=== PATIENT | male | born 1945 | race Caucasian/White ===

== ENCOUNTER 2020-01-13 01:02 | Emergency (ER) | payer MEDICARE, OTHER ==
[~2020-01-13] VITALS: Ht 175.3 cm; Wt 68.2 kg
[~2020-01-13 01:02] MED LIST: ALBU8HFA IH; ASPI-1111 PO; ATOR20TA86 PO; AZITH2005L PO; CLOP75TA3 PO; LISI-660 PO
[2020-01-13] MEDS ORDERED: ALBUTEROL SULFATE 5 MG/ML 20 ML NEB SOLN [BULK] NEB ONE ×2 (01:30)
[2020-01-13] MEDS ORDERED: IPRATROPIUM BROMIDE 0.5 MG/2.5 ML NEB SOLUTION NEB ONE ×2 (01:30→01:33)
[2020-01-13] MEDS ORDERED: MethylPREDNISolone SOD SUCC 125 MG/2 ML VIAL IVP ONE (01:30)
[2020-01-13] MEDS ORDERED: 0.9% SODIUM CHLORIDE 5 ML NEB SOLUTION NEB ONE ×3 (01:33→02:23)
[2020-01-13 02:55] LABS: BASOPHILS % (AUTO) 0.1 % (0.0-2.0); EOSINOPHILS % (AUTO) 0.1 % (1.0-6.0); HEMATOCRIT 34.6 % (41-53); HEMOGLOBIN 11.1 g/dL (13.5-17.5); LYMPHOCYTES # (AUTO) 3.5 K/uL (1.0-4.8); LYMPHOCYTES % (AUTO) 18.9 % (22.0-44.0); MEAN CORPUSCULAR HEMOGLOBIN 31.7 pg (26.0-34.0); MEAN CORPUSCULAR VOLUME 99 fL (80-100); MONOCYTES # (AUTO) 0.6 K/uL (0.1-1.0); MONOCYTES % (AUTO) 3.5 % (2.0-9.0); NEUTROPHILS # (AUTO) 14.3 K/uL (1.8-7.7); NEUTROPHILS % (AUTO) 77.4 % (40.0-70.0); PLATELET COUNT (AUTO) 213 K/uL (150-450); RED BLOOD CELL COUNT(AUTO) 3.49 MIL/uL (4.50-5.90); RED CELL DISTRIBUTION WIDTH 17.2 % (11.5-14.5)
[2020-01-13 03:23] LABS: ALANINE AMINOTRANSFERASE 59 U/L (12-78); ALBUMIN 2.5 g/dL (3.4-5.0); ALKALINE PHOSPHATASE 93 U/L (46-116); ANION GAP 7 mmol/L (8-16); ASPARTATE AMINOTRANSFERASE 85 U/L (15-37); BILIRUBIN,TOTAL 0.7 mg/dL (0.1-1.0); CALCIUM, TOTAL 8.2 mg/dL (8.8-10.5); CARBON DIOXIDE 28 mmol/L (22-29); CHLORIDE 103 mmol/L (98-107); CREATINE KINASE, TOTAL ONLY 67 U/L (39-308); CREATININE 1.03 mg/dL (0.60-1.30); GLOMERULAR FILTR. RATE CALC > 60 mL/min (>60); GLUCOSE,RANDOM 217 mg/dL (70-110); SODIUM SERUM 138 mmol/L (136-145); UREA NITROGEN, BLOOD 20 mg/dL (7-18)
[2020-01-13 03:28] LABS: B-TYPE NATRIURETIC PEPTIDE 1550 pg/mL (0-100)
[2020-01-13] MEDS ORDERED: POTASSIUM CHLORIDE 20 MEQ ER TABLET PO ONE (04:00)
[2020-01-13 04:09] VITALS: BP 131/51
== END 2020-01-13 04:50 | disposition home or self-care (01) ==
LOC: EMS 01:02
DX: J44.9 Chronic obstructive pulmonary disease, unspecified (principal); J18.9 Pneumonia, unspecified organism; I10 Essential (primary) hypertension; F17.210 Nicotine dependence, cigarettes, uncomplicated; Z79.82 Long term (current) use of aspirin; Z79.899 Other long term (current) drug therapy
CPT/HCPCS: 36415; 71045; 80053; 82550; 83880; 84484; 85025; 87040; 93005; 94644; 96374; 99291; J2930

== ENCOUNTER 2021-10-20 05:21 | Emergency (ER) | payer MEDICARE, OTHER ==
[~2021-10-20] VITALS: Ht 167.6 cm; Wt 64.1 kg
[~2021-10-20 05:21] MED LIST changes: +ALEN70TA65 PO; -ASPI-1111 PO; +ASPI-1444 PO; +ATOR10TA84 PO; -ATOR20TA86 PO; -AZITH2005L PO; -CLOP75TA3 PO; +HYDR25TA2 PO; -LISI-660 PO; +PROP10TA73 PO; +ZINC220C14 PO
[2021-10-20] MEDS ORDERED: PredniSONE 20 MG TABLET PO ONE (06:15)
[2021-10-20 07:01] LABS: COVID AG,FIA SOURCE NASOPHARYNGEAL
[2021-10-20 09:00] VITALS: BP 153/72
== END 2021-10-20 09:47 | disposition home or self-care (01) ==
LOC: EMS 05:22
DX: J44.9 Chronic obstructive pulmonary disease, unspecified (principal); E78.00 Pure hypercholesterolemia, unspecified; I10 Essential (primary) hypertension; F17.210 Nicotine dependence, cigarettes, uncomplicated; Z20.822 Contact with and (suspected) exposure to COVID-19; Z79.82 Long term (current) use of aspirin
CPT/HCPCS: 71045; 87426; 93005; 99285; J7512

== ENCOUNTER 2021-10-21 06:19 | Inpatient (IN) | payer MEDICARE, OTHER ==
[~2021-10-21] VITALS: Ht 172.7 cm; Wt 68.6 kg
[2021-10-21] MEDS ORDERED: ALBUTEROL SULFATE 5 MG/ML 20 ML NEB SOLN [BULK] NEB ONE (06:30)
[2021-10-21] MEDS ORDERED: IPRATROPIUM BROMIDE 0.5 MG/2.5 ML NEB SOLUTION NEB ONE (06:30)
[2021-10-21] MEDS ORDERED: MethylPREDNISolone SOD SUCC 125 MG/2 ML VIAL IVP ONE (06:30)
[2021-10-21 06:46] LABS: BASOPHILS % (AUTO) 0.2 % (0.0-2.0); EOSINOPHILS % (AUTO) 0.2 % (1.0-6.0); HEMATOCRIT 39.8 % (41-53); HEMOGLOBIN 13.4 g/dL (13.5-17.5); LYMPHOCYTES # (AUTO) 3.8 K/uL (1.0-4.8); LYMPHOCYTES % (AUTO) 25.2 % (22.0-44.0); MEAN CORPUSCULAR HEMOGLOBIN 33.5 pg (26.0-34.0); MEAN CORPUSCULAR HGB CONC 33.6 G/dL (31.0-37.0); MEAN CORPUSCULAR VOLUME 100 fL (80-100); MONOCYTES # (AUTO) 0.8 K/uL (0.1-1.0); MONOCYTES % (AUTO) 5.5 % (2.0-9.0); NEUTROPHILS # (AUTO) 10.4 K/uL (1.8-7.7); NEUTROPHILS % (AUTO) 68.9 % (40.0-70.0); PLATELET COUNT (AUTO) 268 K/uL (150-450); RED BLOOD CELL COUNT(AUTO) 3.99 MIL/uL (4.50-5.90); RED CELL DISTRIBUTION WIDTH 14.6 % (11.5-14.5)
[2021-10-21 06:54] LABS: ANION GAP 9 mmol/L (8-16); CALCIUM, TOTAL 9.1 mg/dL (8.8-10.5); CARBON DIOXIDE 26 mmol/L (22-29); CHLORIDE 103 mmol/L (98-107); CREATININE 1.05 mg/dL (0.60-1.30); GLUCOSE,RANDOM 188 mg/dL (70-110); POTASSIUM 4.7 mmol/L (3.5-5.1); SODIUM SERUM 138 mmol/L (136-145); UREA NITROGEN, BLOOD 20 mg/dL (7-18)
[2021-10-21 06:55] LABS: GLOMERULAR FILTR. RATE CALC > 60 mL/min (>60)
[2021-10-21 07:00] LABS: ALANINE AMINOTRANSFERASE 32 U/L (12-78); ALKALINE PHOSPHATASE 87 U/L (46-116); ASPARTATE AMINOTRANSFERASE 49 U/L (15-37); BILIRUBIN,TOTAL 0.8 mg/dL (0.1-1.0); TOTAL PROTEIN, SERUM 6.7 g/dL (6.4-8.2)
[2021-10-21] MEDS ORDERED: AZITHROMYCIN 500 MG/NS 250 ML IV ONE (07:00)
[2021-10-21] MEDS ORDERED: CefTRIAXone 1 GM/DEXTROSE 50 ML IV ONE (07:00)
[2021-10-21 07:03] LABS: COVID AG,FIA SOURCE NASAL SWAB
[2021-10-21] MEDS ORDERED: ONDANSETRON HCL 4 MG/2 ML VIAL IVP PRN (07:30)
[2021-10-21] MEDS ORDERED: ACETAMINOPHEN 325 MG TABLET PO PRN ×2 (07:30→10:30)
[2021-10-21] MEDS ORDERED: IPRATROPIUM BROMIDE 0.5 MG/2.5 ML NEB SOLUTION NEB PRN (10:30)
[2021-10-21] MEDS ORDERED: ALBUTEROL SULFATE 2.5 MG/0.5 ML NEB SOLUTION NEB PRN (10:30)
[2021-10-21] MEDS: AmLODIPine BESYLATE 5 MG TABLET PO SCH (10:50)
[2021-10-21] MEDS ORDERED: IPRATROPIUM BROMIDE 0.5 MG/2.5 ML NEB SOLUTION NEB SCH (11:00)
[2021-10-21] MEDS ORDERED: ALBUTEROL SULFATE 2.5 MG/0.5 ML NEB SOLUTION NEB SCH (11:00)
[2021-10-21] MEDS: MethylPREDNISolone SOD SUCC 125 MG/2 ML VIAL IVP SCH (15:08)
[2021-10-21] MEDS: HEPARIN SODIUM,PORCINE 5,000 UNITS/ML VIAL SQ SCH (15:08)
[2021-10-21 18:11] VITALS: BP 150/69
[2021-10-21 19:34] VITALS: BP 127/58
[2021-10-21] MEDS: DOCUSATE SODIUM 100 MG CAPSULE PO SCH (21:37)
[2021-10-21] MEDS: FAMOTIDINE 20 MG TABLET PO SCH (21:37)
[2021-10-22] MEDS ORDERED: INFLUENZA VIRUS VACCINE QVS 2021-22 (6MO+)/PF 60 MCG/0.5 ML SYRINGE IM. ONE (00:15)
[2021-10-22 00:21] VITALS: BP 146/65
[2021-10-22] MEDS: HEPARIN SODIUM,PORCINE 5,000 UNITS/ML VIAL SQ SCH ×3 (00:49→16:35)
[2021-10-22] MEDS: MethylPREDNISolone SOD SUCC 125 MG/2 ML VIAL IVP SCH ×3 (00:49→16:35)
[2021-10-22 04:00] VITALS: BP 146/52
[2021-10-22] MEDS ORDERED: SODIUM CHLORIDE 0.9% 250 ML IV ONE (06:33)
[2021-10-22] MEDS: AZITHROMYCIN 500 MG/NS 250 ML IV SCH (06:38)
[2021-10-22 07:27] VITALS: BP 101/57
[2021-10-22] MEDS: DOCUSATE SODIUM 100 MG CAPSULE PO SCH ×2 (07:50→20:07)
[2021-10-22] MEDS: AmLODIPine BESYLATE 5 MG TABLET PO SCH (07:51)
[2021-10-22] MEDS: FAMOTIDINE 20 MG TABLET PO SCH ×2 (07:51→20:07)
[2021-10-22] MEDS: ASPIRIN 81 MG CHEWABLE TABLET PO SCH (07:51)
[2021-10-22] MEDS ORDERED: SODIUM CHLORIDE 0.9% 1,000 ML IV ONE (09:45)
[2021-10-22 12:18] VITALS: BP 128/64
[2021-10-22 15:23] VITALS: BP 130/64
[2021-10-22 19:55] VITALS: BP 134/68
[2021-10-23] MEDS: HEPARIN SODIUM,PORCINE 5,000 UNITS/ML VIAL SQ SCH ×4 (00:06→23:40)
[2021-10-23 03:00] VITALS: BP 141/69
[2021-10-23] MEDS: AZITHROMYCIN 500 MG/NS 250 ML IV SCH (05:51)
[2021-10-23 06:20] LABS: BASOPHILS % (AUTO) 0.1 % (0.0-2.0); EOSINOPHILS % (AUTO) 0 % (1.0-6.0); HEMATOCRIT 35.3 % (41-53); HEMOGLOBIN 11.8 g/dL (13.5-17.5); LYMPHOCYTES # (AUTO) 3.9 K/uL (1.0-4.8); LYMPHOCYTES % (AUTO) 22.1 % (22.0-44.0); MEAN CORPUSCULAR HEMOGLOBIN 32.7 pg (26.0-34.0); MEAN CORPUSCULAR HGB CONC 33.6 G/dL (31.0-37.0); MEAN CORPUSCULAR VOLUME 98 fL (80-100); MONOCYTES # (AUTO) 1.1 K/uL (0.1-1.0); MONOCYTES % (AUTO) 6.2 % (2.0-9.0); NEUTROPHILS # (AUTO) 12.7 K/uL (1.8-7.7); NEUTROPHILS % (AUTO) 71.6 % (40.0-70.0); PLATELET COUNT (AUTO) 218 K/uL (150-450); RED BLOOD CELL COUNT(AUTO) 3.62 MIL/uL (4.50-5.90); RED CELL DISTRIBUTION WIDTH 14.1 % (11.5-14.5)
[2021-10-23 06:28] LABS: ANION GAP 8 mmol/L (8-16); CALCIUM, TOTAL 8.9 mg/dL (8.8-10.5); CARBON DIOXIDE 24 mmol/L (22-29); CHLORIDE 103 mmol/L (98-107); CREATININE 0.86 mg/dL (0.60-1.30); GLUCOSE,RANDOM 114 mg/dL (70-110); POTASSIUM 4.4 mmol/L (3.5-5.1); SODIUM SERUM 135 mmol/L (136-145); UREA NITROGEN, BLOOD 37 mg/dL (7-18)
[2021-10-23 06:30] LABS: GLOMERULAR FILTR. RATE CALC > 60 mL/min (>60)
[2021-10-23 07:28] VITALS: BP 134/72
[2021-10-23] MEDS: ASPIRIN 81 MG CHEWABLE TABLET PO SCH (07:42)
[2021-10-23] MEDS: MethylPREDNISolone SOD SUCC 125 MG/2 ML VIAL IVP SCH ×2 (07:43)
[2021-10-23] MEDS: DOCUSATE SODIUM 100 MG CAPSULE PO SCH ×2 (07:43→19:40)
[2021-10-23] MEDS: FAMOTIDINE 20 MG TABLET PO SCH ×2 (07:44→19:40)
[2021-10-23] MEDS: AmLODIPine BESYLATE 5 MG TABLET PO SCH (07:45)
[2021-10-23 11:25] VITALS: BP 132/67
[2021-10-23] MEDS: CALCIUM CIT/VITAMIN D3 200 MG-250 UNITS TABLET PO SCH ×2 (12:31→19:40)
[2021-10-23] MEDS: PredniSONE 10 MG TABLET PO SCH (12:32)
[2021-10-23 15:10] VITALS: BP 141/70
[2021-10-23 19:49] VITALS: BP 158/67
[2021-10-23 23:46] VITALS: BP 133/64
[2021-10-24 03:30] VITALS: BP 137/83
[2021-10-24] MEDS: AZITHROMYCIN 500 MG/NS 250 ML IV SCH (05:22)
[2021-10-24 08:00] VITALS: BP 131/63
[2021-10-24] MEDS: HEPARIN SODIUM,PORCINE 5,000 UNITS/ML VIAL SQ SCH ×3 (08:42→23:48)
[2021-10-24] MEDS: FAMOTIDINE 20 MG TABLET PO SCH ×2 (08:42→19:39)
[2021-10-24] MEDS: DOCUSATE SODIUM 100 MG CAPSULE PO SCH ×2 (08:42→19:39)
[2021-10-24] MEDS: PredniSONE 10 MG TABLET PO SCH (08:42)
[2021-10-24] MEDS: CALCIUM CIT/VITAMIN D3 200 MG-250 UNITS TABLET PO SCH ×2 (08:42→19:39)
[2021-10-24] MEDS: AmLODIPine BESYLATE 5 MG TABLET PO SCH (08:43)
[2021-10-24] MEDS: ASPIRIN 81 MG CHEWABLE TABLET PO SCH (08:43)
[2021-10-24 11:30] VITALS: BP 139/63
[2021-10-24 16:00] VITALS: BP 146/66
[2021-10-24 19:10] VITALS: BP 150/76
[2021-10-25 00:25] VITALS: BP 155/69
[2021-10-25 04:15] VITALS: BP 148/72
[2021-10-25] MEDS: AZITHROMYCIN 500 MG/NS 250 ML IV SCH (05:06)
[2021-10-25] MEDS: ASPIRIN 81 MG CHEWABLE TABLET PO SCH (08:14)
[2021-10-25] MEDS: PredniSONE 10 MG TABLET PO SCH (08:14)
[2021-10-25] MEDS: AmLODIPine BESYLATE 5 MG TABLET PO SCH (08:14)
[2021-10-25] MEDS: FAMOTIDINE 20 MG TABLET PO SCH (08:14)
[2021-10-25] MEDS: DOCUSATE SODIUM 100 MG CAPSULE PO SCH (08:14)
[2021-10-25] MEDS: CALCIUM CIT/VITAMIN D3 200 MG-250 UNITS TABLET PO SCH (08:14)
[2021-10-25] MEDS: HEPARIN SODIUM,PORCINE 5,000 UNITS/ML VIAL SQ SCH (08:15)
[2021-10-25 09:20] VITALS: BP 147/89
[2021-10-25] MEDS ORDERED: CHOL200016 PO (09:51)
[2021-10-25] MEDS ORDERED: AZIT-104 PO (09:52)
[2021-10-25] MEDS ORDERED: PRED20 PO (09:52)
== END 2021-10-25 12:30 | disposition home or self-care (01) | DRG 190 ==
LOC: EMS 06:21 → 5S 17:38 → 5N 10-22 00:10
PROVIDERS: ADMIT Internal Medicine; ATTEND Internal Medicine
DX: J44.0 Chronic obstructive pulmonary disease with (acute) lower respiratory infection (principal); E43 Unspecified severe protein-calorie malnutrition; M48.56XA Collapsed vertebra, not elsewhere classified, lumbar region, initial encounter for fracture; J20.9 Acute bronchitis, unspecified; J44.1 Chronic obstructive pulmonary disease with (acute) exacerbation; I10 Essential (primary) hypertension; E78.00 Pure hypercholesterolemia, unspecified; Z20.822 Contact with and (suspected) exposure to COVID-19; F17.210 Nicotine dependence, cigarettes, uncomplicated; C44.92 Squamous cell carcinoma of skin, unspecified; Z68.23 Body mass index [BMI] 23.0-23.9, adult
CPT/HCPCS: 71045; 71250; 80048; 80053; 83036; 85025; 87040; 93005; 94644; 99291; J0456; J0696; J1644; J2930; J7030; J7050; Q9967; 36415-L1; 36415-TC; J7512; J7611; J7613; U0003; Z7610

== ENCOUNTER 2021-11-23 04:59 | Inpatient (IN) | payer MEDICARE, OTHER ==
[~2021-11-23] VITALS: Ht 172.7 cm; Wt 59.7 kg
[~2021-11-23 04:59] MED LIST changes: +AZIT-104 PO; +CHOL200016 PO; +PRED20 PO; -PROP10TA73 PO
[2021-11-23 05:42] LABS: COVID AG,FIA SOURCE NASAL SWAB
[2021-11-23 05:44] LABS: BASOPHILS % (AUTO) 0.7 % (0.0-2.0); EOSINOPHILS % (AUTO) 0.4 % (1.0-6.0); HEMATOCRIT 37.1 % (41-53); HEMOGLOBIN 12.1 g/dL (13.5-17.5); LYMPHOCYTES # (AUTO) 5.4 K/uL (1.0-4.8); LYMPHOCYTES % (AUTO) 36.3 % (22.0-44.0); MEAN CORPUSCULAR HGB CONC 32.7 G/dL (31.0-37.0); MEAN CORPUSCULAR VOLUME 95 fL (80-100); MONOCYTES # (AUTO) 0.9 K/uL (0.1-1.0); MONOCYTES % (AUTO) 5.9 % (2.0-9.0); NEUTROPHILS # (AUTO) 8.4 K/uL (1.8-7.7); NEUTROPHILS % (AUTO) 56.7 % (40.0-70.0); PLATELET COUNT (AUTO) 276 K/uL (150-450); RED BLOOD CELL COUNT(AUTO) 3.91 MIL/uL (4.50-5.90); RED CELL DISTRIBUTION WIDTH 14.8 % (11.5-14.5)
[2021-11-23 05:57] LABS: ANION GAP 9 mmol/L (8-16); CALCIUM, TOTAL 9.2 mg/dL (8.8-10.5); CARBON DIOXIDE 27 mmol/L (22-29); CHLORIDE 102 mmol/L (98-107); CREATININE 0.83 mg/dL (0.60-1.30); GLOMERULAR FILTR. RATE CALC > 60 mL/min (>60); GLUCOSE,RANDOM 109 mg/dL (70-110); POTASSIUM 4.1 mmol/L (3.5-5.1); SODIUM SERUM 138 mmol/L (136-145); UREA NITROGEN, BLOOD 15 mg/dL (7-18)
[2021-11-23 06:03] LABS: ALANINE AMINOTRANSFERASE 14 U/L (12-78); ALKALINE PHOSPHATASE 79 U/L (46-116); ASPARTATE AMINOTRANSFERASE 19 U/L (15-37); BILIRUBIN,TOTAL 0.7 mg/dL (0.1-1.0); TOTAL PROTEIN, SERUM 6.6 g/dL (6.4-8.2)
[2021-11-23] MEDS ORDERED: PredniSONE 20 MG TABLET PO ONE (07:45)
[2021-11-23] MEDS ORDERED: CefTRIAXone 1 GM/DEXTROSE 50 ML IV ONE (07:45)
[2021-11-23] MEDS ORDERED: IPRATROPIUM BROMIDE 0.5 MG/2.5 ML NEB SOLUTION NEB ONE (07:45)
[2021-11-23] MEDS ORDERED: DOXYCYCLINE HYCLATE 100 MG TABLET PO ONE (07:45)
[2021-11-23] MEDS ORDERED: ALBUTEROL SULFATE 5 MG/ML 20 ML NEB SOLN [BULK] NEB ONE (07:45)
[2021-11-23] MEDS ORDERED: FUROSEMIDE 20 MG/2 ML VIAL IVP ONE (08:15)
[2021-11-23] MEDS ORDERED: ALBUTEROL SULFATE 2.5 MG/0.5 ML NEB SOLUTION NEB PRN (09:15)
[2021-11-23] MEDS ORDERED: MAGNESIUM HYDROXIDE SUSPENSION 30 ML UDCUP PO PRN (09:15)
[2021-11-23] MEDS ORDERED: HYDROCODONE/ACETAMINOPHEN 5-325 MG TABLET PO PRN (09:15)
[2021-11-23] MEDS ORDERED: IPRATROPIUM BROMIDE 0.5 MG/2.5 ML NEB SOLUTION NEB PRN (09:15)
[2021-11-23] MEDS ORDERED: MORPHINE SULFATE 2 MG/ML SYRINGE IVP PRN (09:15)
[2021-11-23] MEDS ORDERED: ONDANSETRON HCL 4 MG/2 ML VIAL IVP PRN (09:15)
[2021-11-23] MEDS ORDERED: BISACODYL 10 MG RECTAL RECTAL SUPPOSITORY PR PRN (09:15)
[2021-11-23] MEDS ORDERED: ZOLPIDEM TARTRATE 5 MG TABLET PO PRN (09:15)
[2021-11-23] MEDS ORDERED: ACETAMINOPHEN 325 MG TABLET PO PRN (09:15)
[2021-11-23] MEDS: AZITHROMYCIN 500 MG/NS 250 ML IV SCH (09:53)
[2021-11-23] MEDS: MethylPREDNISolone SOD SUCC 125 MG/2 ML VIAL IVP SCH ×2 (11:34→18:07)
[2021-11-23 12:05] VITALS: BP 107/50
[2021-11-23 14:39] VITALS: BP 107/50
[2021-11-23] MEDS: IPRATROPIUM BROMIDE 0.5 MG/2.5 ML NEB SOLUTION NEB SCH ×2 (15:23→19:58)
[2021-11-23] MEDS: ALBUTEROL SULFATE 2.5 MG/0.5 ML NEB SOLUTION NEB SCH ×2 (15:24→19:55)
[2021-11-23] MEDS: HEPARIN SODIUM,PORCINE 5,000 UNITS/ML VIAL SQ SCH (16:02)
[2021-11-23] MEDS: BENZONATATE 100 MG CAPSULE PO SCH ×2 (16:02→21:19)
[2021-11-23 16:22] VITALS: BP 110/60
[2021-11-23 19:44] VITALS: BP 121/64
[2021-11-23] MEDS: DOCUSATE SODIUM 100 MG CAPSULE PO SCH (21:19)
[2021-11-23] MEDS: GuaiFENesin SR 600 MG ER TABLET PO SCH (21:19)
[2021-11-23] MEDS: FUROSEMIDE 20 MG/2 ML VIAL IVP SCH (21:19)
[2021-11-23 23:37] VITALS: BP 114/63
[2021-11-24] MEDS: MethylPREDNISolone SOD SUCC 125 MG/2 ML VIAL IVP SCH ×5 (00:32→23:53)
[2021-11-24] MEDS: HEPARIN SODIUM,PORCINE 5,000 UNITS/ML VIAL SQ SCH ×4 (00:32→23:53)
[2021-11-24] MEDS ORDERED: IOHEXOL 350 MG/ML 100 ML VIAL ONE (02:23)
[2021-11-24] MEDS ORDERED: SODIUM CHLORIDE 0.9% 100 ML ONE (02:24)
[2021-11-24] MEDS: IPRATROPIUM BROMIDE 0.5 MG/2.5 ML NEB SOLUTION NEB SCH ×4 (03:04→20:09)
[2021-11-24] MEDS: ALBUTEROL SULFATE 2.5 MG/0.5 ML NEB SOLUTION NEB SCH ×4 (03:04→20:09)
[2021-11-24 04:40] VITALS: BP 130/58
[2021-11-24 07:11] LABS: BASOPHILS % (AUTO) 0.1 % (0.0-2.0); EOSINOPHILS % (AUTO) 0 % (1.0-6.0); HEMATOCRIT 34.9 % (41-53); HEMOGLOBIN 11.5 g/dL (13.5-17.5); LYMPHOCYTES # (AUTO) 3.6 K/uL (1.0-4.8); LYMPHOCYTES % (AUTO) 22.5 % (22.0-44.0); MEAN CORPUSCULAR HEMOGLOBIN 31.1 pg (26.0-34.0); MEAN CORPUSCULAR VOLUME 94 fL (80-100); MONOCYTES # (AUTO) 0.5 K/uL (0.1-1.0); MONOCYTES % (AUTO) 3.1 % (2.0-9.0); NEUTROPHILS # (AUTO) 11.8 K/uL (1.8-7.7); NEUTROPHILS % (AUTO) 74.3 % (40.0-70.0); PLATELET COUNT (AUTO) 261 K/uL (150-450); RED BLOOD CELL COUNT(AUTO) 3.71 MIL/uL (4.50-5.90); RED CELL DISTRIBUTION WIDTH 14.7 % (11.5-14.5)
[2021-11-24 07:13] VITALS: BP 125/65
[2021-11-24 07:21] LABS: HEMOGLOBIN A1C 5.6 % (3.8-5.6)
[2021-11-24 07:25] LABS: B-TYPE NATRIURETIC PEPTIDE 1620 pg/mL (0-100)
[2021-11-24 07:27] LABS: ANION GAP 10 mmol/L (8-16); CALCIUM, TOTAL 8.9 mg/dL (8.8-10.5); CARBON DIOXIDE 26 mmol/L (22-29); CHLORIDE 97 mmol/L (98-107); CHOL/HDL RATIO 2.2 (4.2-7.3); CHOLESTEROL 198 mg/dL (131-200); CREATININE 0.88 mg/dL (0.60-1.30); GLOMERULAR FILTR. RATE CALC > 60 mL/min (>60); GLUCOSE,RANDOM 187 mg/dL (70-110); HDL CHOLESTEROL 91 mg/dL (40-60); LDL CHOL (CALC.) 98 mg/dL (0-130); POTASSIUM 3.8 mmol/L (3.5-5.1); SODIUM SERUM 133 mmol/L (136-145); TRIGLYCERIDES 45 mg/dL (15-150); UREA NITROGEN, BLOOD 24 mg/dL (7-18)
[2021-11-24] MEDS: BUDESONIDE 0.5 MG/2 ML NEB SOLUTION NEB SCH (07:38)
[2021-11-24] MEDS: CefTRIAXone 1 GM/DEXTROSE 50 ML IV SCH (08:31)
[2021-11-24] MEDS: PANTOPRAZOLE SODIUM 40 MG DR TABLET PO SCH (08:32)
[2021-11-24] MEDS: GuaiFENesin SR 600 MG ER TABLET PO SCH ×2 (08:32→21:38)
[2021-11-24] MEDS: BENZONATATE 100 MG CAPSULE PO SCH ×3 (08:32→21:40)
[2021-11-24] MEDS: DOCUSATE SODIUM 100 MG CAPSULE PO SCH ×2 (08:32→21:40)
[2021-11-24] MEDS: FUROSEMIDE 20 MG/2 ML VIAL IVP SCH (08:32)
[2021-11-24] MEDS: CHOLECALCIFEROL (VIT D3) 2,000 UNITS [50 MCG] TABLET PO SCH (08:36)
[2021-11-24] MEDS: ASPIRIN 81 MG DR TABLET PO SCH (08:37)
[2021-11-24] MEDS ORDERED: HYDROCHLOROTHIAZIDE 25 MG TABLET PO SCH (09:00)
[2021-11-24] MEDS ORDERED: FUROSEMIDE 20 MG/2 ML VIAL IVP SCH (09:00)
[2021-11-24] MEDS: CARVEDILOL 3.125 MG TABLET PO SCH ×2 (10:26→21:38)
[2021-11-24] MEDS: AZITHROMYCIN 500 MG/NS 250 ML IV SCH (10:27)
[2021-11-24 11:06] VITALS: BP 142/71
[2021-11-24 15:08] VITALS: BP 118/64
[2021-11-24 21:16] VITALS: BP 133/53
[2021-11-25] VITALS (7 sets, daily range): BP systolic 104–128; BP diastolic 50–77
[2021-11-25] MEDS: IPRATROPIUM BROMIDE 0.5 MG/2.5 ML NEB SOLUTION NEB SCH ×4 (01:43→19:45)
[2021-11-25] MEDS: ALBUTEROL SULFATE 2.5 MG/0.5 ML NEB SOLUTION NEB SCH ×4 (01:43→19:45)
[2021-11-25 06:18] LABS: EOSINOPHILS % (AUTO) 0 % (1.0-6.0); HEMATOCRIT 34.6 % (41-53); HEMOGLOBIN 11.2 g/dL (13.5-17.5); LYMPHOCYTES # (AUTO) 3.9 K/uL (1.0-4.8); LYMPHOCYTES % (AUTO) 19.6 % (22.0-44.0); MEAN CORPUSCULAR HEMOGLOBIN 30.8 pg (26.0-34.0); MEAN CORPUSCULAR HGB CONC 32.3 G/dL (31.0-37.0); MEAN CORPUSCULAR VOLUME 95 fL (80-100); MONOCYTES # (AUTO) 0.6 K/uL (0.1-1.0); MONOCYTES % (AUTO) 3.1 % (2.0-9.0); NEUTROPHILS # (AUTO) 15.3 K/uL (1.8-7.7); NEUTROPHILS % (AUTO) 77.3 % (40.0-70.0); PLATELET COUNT (AUTO) 222 K/uL (150-450); RED BLOOD CELL COUNT(AUTO) 3.63 MIL/uL (4.50-5.90); RED CELL DISTRIBUTION WIDTH 14.8 % (11.5-14.5)
[2021-11-25 06:21] LABS: ANION GAP 7 mmol/L (8-16); CALCIUM, TOTAL 8.7 mg/dL (8.8-10.5); CARBON DIOXIDE 30 mmol/L (22-29); CHLORIDE 98 mmol/L (98-107); CREATININE 1.04 mg/dL (0.60-1.30); GLUCOSE,RANDOM 147 mg/dL (70-110); POTASSIUM 4.7 mmol/L (3.5-5.1); SODIUM SERUM 135 mmol/L (136-145); UREA NITROGEN, BLOOD 27 mg/dL (7-18)
[2021-11-25] MEDS: MethylPREDNISolone SOD SUCC 125 MG/2 ML VIAL IVP SCH ×2 (06:27→13:00)
[2021-11-25 07:08] LABS: GLOMERULAR FILTR. RATE CALC > 60 mL/min (>60)
[2021-11-25] MEDS: DOCUSATE SODIUM 100 MG CAPSULE PO SCH ×2 (08:19→20:23)
[2021-11-25] MEDS: CHOLECALCIFEROL (VIT D3) 2,000 UNITS [50 MCG] TABLET PO SCH (08:20)
[2021-11-25] MEDS: GuaiFENesin SR 600 MG ER TABLET PO SCH ×2 (08:20→20:23)
[2021-11-25] MEDS: PANTOPRAZOLE SODIUM 40 MG DR TABLET PO SCH (08:20)
[2021-11-25] MEDS: BENZONATATE 100 MG CAPSULE PO SCH ×3 (08:21→20:23)
[2021-11-25] MEDS: CARVEDILOL 3.125 MG TABLET PO SCH ×2 (08:21→20:23)
[2021-11-25] MEDS: HEPARIN SODIUM,PORCINE 5,000 UNITS/ML VIAL SQ SCH ×2 (08:21→16:19)
[2021-11-25] MEDS: AZITHROMYCIN 500 MG/NS 250 ML IV SCH (08:24)
[2021-11-25] MEDS: ASPIRIN 81 MG DR TABLET PO SCH (08:43)
[2021-11-25] MEDS ORDERED: FUROSEMIDE 20 MG/2 ML VIAL IVP SCH (09:00)
[2021-11-25] MEDS: BUDESONIDE 0.5 MG/2 ML NEB SOLUTION NEB SCH ×2 (09:00→19:46)
[2021-11-25] MEDS ORDERED: LIDOCAINE 2% VISCOUS 15 ML SOLUTION UDCUP ONE (09:44)
[2021-11-25] MEDS ORDERED: FentaNYL CITRATE PF 100 MCG/2 ML VIAL ONE (09:49)
[2021-11-25] MEDS ORDERED: MIDAZOLAM HCL 2 MG/2 ML VIAL ONE (09:50)
[2021-11-25] MEDS ORDERED: MIDAZOLAM HCL 2 MG/2 ML VIAL IVP ONE ×2 (10:00)
[2021-11-25] MEDS ORDERED: LIDOCAINE 2% VISCOUS 15 ML SOLUTION UDCUP PO ONE (10:00)
[2021-11-25] MEDS ORDERED: FentaNYL CITRATE PF 100 MCG/2 ML VIAL IVP ONE ×2 (10:00)
[2021-11-25] MEDS: CefTRIAXone 1 GM/DEXTROSE 50 ML IV SCH (12:59)
[2021-11-25] MEDS: PredniSONE 20 MG TABLET PO SCH (18:53)
[2021-11-25] MEDS: SACUBITRIL/VALSARTAN 24-26 MG TABLET PO SCH (20:23)
[2021-11-26] VITALS (9 sets, daily range): BP systolic 54–150; BP diastolic 45–60
[2021-11-26] MEDS: HEPARIN SODIUM,PORCINE 5,000 UNITS/ML VIAL SQ SCH ×3 (00:16→16:00)
[2021-11-26] MEDS: IPRATROPIUM BROMIDE 0.5 MG/2.5 ML NEB SOLUTION NEB SCH ×4 (02:00→20:14)
[2021-11-26] MEDS: ALBUTEROL SULFATE 2.5 MG/0.5 ML NEB SOLUTION NEB SCH ×4 (02:00→20:14)
[2021-11-26 05:59] LABS: BASOPHILS % (AUTO) 0.1 % (0.0-2.0); EOSINOPHILS % (AUTO) 0 % (1.0-6.0); HEMATOCRIT 34.6 % (41-53); HEMOGLOBIN 11.3 g/dL (13.5-17.5); LYMPHOCYTES # (AUTO) 4.4 K/uL (1.0-4.8); LYMPHOCYTES % (AUTO) 24.4 % (22.0-44.0); MEAN CORPUSCULAR HEMOGLOBIN 30.9 pg (26.0-34.0); MEAN CORPUSCULAR HGB CONC 32.5 G/dL (31.0-37.0); MEAN CORPUSCULAR VOLUME 95 fL (80-100); MONOCYTES # (AUTO) 0.8 K/uL (0.1-1.0); MONOCYTES % (AUTO) 4.4 % (2.0-9.0); NEUTROPHILS # (AUTO) 12.7 K/uL (1.8-7.7); NEUTROPHILS % (AUTO) 71.1 % (40.0-70.0); PLATELET COUNT (AUTO) 238 K/uL (150-450); RED BLOOD CELL COUNT(AUTO) 3.64 MIL/uL (4.50-5.90); RED CELL DISTRIBUTION WIDTH 14.9 % (11.5-14.5)
[2021-11-26 06:17] LABS: ANION GAP 7 mmol/L (8-16); CALCIUM, TOTAL 8.7 mg/dL (8.8-10.5); CARBON DIOXIDE 29 mmol/L (22-29); CHLORIDE 100 mmol/L (98-107); CREATININE 0.92 mg/dL (0.60-1.30); GLOMERULAR FILTR. RATE CALC > 60 mL/min (>60); GLUCOSE,RANDOM 137 mg/dL (70-110); SODIUM SERUM 136 mmol/L (136-145); UREA NITROGEN, BLOOD 35 mg/dL (7-18)
[2021-11-26] MEDS ORDERED: IOHEXOL 300 MG/ML 150 ML VIAL ONE (08:25)
[2021-11-26] MEDS ORDERED: LIDOCAINE/PF 1% 30 ML VIAL ONE (08:25)
[2021-11-26] MEDS ORDERED: HEPARIN SODIUM 1000 UNITS/NS 1,000 ML ONE (08:25)
[2021-11-26] MEDS ORDERED: SODIUM BICARBONATE 50 MEQ/50 ML VIAL ONE (08:25)
[2021-11-26] MEDS: ASPIRIN 81 MG DR TABLET PO SCH (09:00)
[2021-11-26] MEDS ORDERED: MIDAZOLAM HCL 2 MG/2 ML VIAL ONE (09:17)
[2021-11-26] MEDS ORDERED: FentaNYL CITRATE PF 100 MCG/2 ML VIAL ONE (09:17)
[2021-11-26] MEDS ORDERED: VERAPAMIL HCL 2.5 MG/ML 2 ML VIAL ONE (09:17)
[2021-11-26] MEDS ORDERED: NITROGLYCERIN 50 MG/D5% WATER 250 ML ONE (09:18)
[2021-11-26] MEDS ORDERED: MIDAZOLAM HCL 2 MG/2 ML VIAL IVP ONE (09:45)
[2021-11-26] MEDS ORDERED: HEPARIN SODIUM 1000 UNITS/NS 1,000 ML IARTER ONE (09:45)
[2021-11-26] MEDS ORDERED: NITROGLYCERIN/D5W 50 MG/250 ML IV BOTTLE IARTER ONE (09:45)
[2021-11-26] MEDS ORDERED: VERAPAMIL HCL 2.5 MG/ML 2 ML VIAL IARTER ONE (09:45)
[2021-11-26] MEDS ORDERED: IOHEXOL 300 MG/ML 150 ML VIAL IARTER ONE (09:45)
[2021-11-26] MEDS ORDERED: HEPARIN SODIUM,PORCINE 1,000 UNITS/ML 10 ML VIAL IARTER ONE (09:45)
[2021-11-26] MEDS ORDERED: LIDOCAINE 1% 30 ML/SOD BICARB 8.4% 4 ML SQ ONE (09:45)
[2021-11-26] MEDS ORDERED: FentaNYL CITRATE PF 100 MCG/2 ML VIAL IVP ONE ×2 (09:45→10:15)
[2021-11-26] MEDS ORDERED: IOHEXOL 300 MG/ML 50 ML VIAL ONE (09:48)
[2021-11-26] MEDS ORDERED: IOHEXOL 300 MG/ML 100 ML VIAL ONE (09:56)
[2021-11-26] MEDS ORDERED: HEPARIN SODIUM,PORCINE 5,000 UNITS/ML VIAL IVP ONE (10:00)
[2021-11-26] MEDS ORDERED: TICAGRELOR 90 MG TABLET PO ONE (10:15)
[2021-11-26] MEDS ORDERED: ASPIRIN 325 MG TABLET PO ONE (10:15)
[2021-11-26] MEDS ORDERED: ASPIRIN 325 MG TABLET ONE (10:15)
[2021-11-26] MEDS: CARVEDILOL 3.125 MG TABLET PO SCH ×2 (11:41→20:38)
[2021-11-26] MEDS: BUDESONIDE 0.5 MG/2 ML NEB SOLUTION NEB SCH ×2 (11:42→20:14)
[2021-11-26] MEDS: SACUBITRIL/VALSARTAN 24-26 MG TABLET PO SCH ×2 (11:42→20:37)
[2021-11-26] MEDS: DOCUSATE SODIUM 100 MG CAPSULE PO SCH ×2 (11:42→20:37)
[2021-11-26] MEDS: BENZONATATE 100 MG CAPSULE PO SCH ×3 (11:42→20:37)
[2021-11-26] MEDS: PredniSONE 20 MG TABLET PO SCH (11:43)
[2021-11-26] MEDS: PANTOPRAZOLE SODIUM 40 MG DR TABLET PO SCH (11:43)
[2021-11-26] MEDS: CHOLECALCIFEROL (VIT D3) 2,000 UNITS [50 MCG] TABLET PO SCH (11:43)
[2021-11-26] MEDS: GuaiFENesin SR 600 MG ER TABLET PO SCH ×2 (11:44→20:37)
[2021-11-26] MEDS: AZITHROMYCIN 500 MG/NS 250 ML IV SCH (11:47)
[2021-11-26] MEDS: CefTRIAXone 1 GM/DEXTROSE 50 ML IV SCH (13:16)
[2021-11-26] MEDS: TICAGRELOR 90 MG TABLET PO SCH (20:37)
[2021-11-27] VITALS: BP 96/51
[2021-11-27] MEDS: HEPARIN SODIUM,PORCINE 5,000 UNITS/ML VIAL SQ SCH ×3 (00:46→18:48)
[2021-11-27] MEDS: IPRATROPIUM BROMIDE 0.5 MG/2.5 ML NEB SOLUTION NEB SCH ×4 (01:28→20:47)
[2021-11-27] MEDS: ALBUTEROL SULFATE 2.5 MG/0.5 ML NEB SOLUTION NEB SCH ×4 (01:28→20:47)
[2021-11-27 03:48] VITALS: BP 121/83
[2021-11-27 05:31] LABS: APPEARANCE,URINE CLEAR (CLEAR); BILIRUBIN,URINE NEGATIVE (NEGATIVE); GLUCOSE, URINE (UA) NEGATIVE (NEGATIVE); KETONES,URINE NEGATIVE (NEGATIVE); LEUKOCYTE ESTERASE ,URINE NEGATIVE (NEGATIVE); NITRATE,URINE NEGATIVE (NEGATIVE); OCCULT BLOOD,URINE NEGATIVE (NEGATIVE); PROTEIN,URINE NEGATIVE (NEGATIVE); UROBILINOGEN,URINE 0.2 mg/dL (<=1.0)
[2021-11-27 05:46] LABS: BACTERIA,URINE None Seen /HPF (None Seen); RBC,URINE None Seen /HPF (0-2); WBC,URINE None Seen /HPF (0-5)
[2021-11-27 07:35] VITALS: BP 110/63
[2021-11-27 07:40] LABS: BASOPHILS % (AUTO) 0.1 % (0.0-2.0); EOSINOPHILS % (AUTO) 0 % (1.0-6.0); HEMATOCRIT 35.2 % (41-53); HEMOGLOBIN 11.5 g/dL (13.5-17.5); LYMPHOCYTES # (AUTO) 6.8 K/uL (1.0-4.8); MEAN CORPUSCULAR HEMOGLOBIN 30.8 pg (26.0-34.0); MEAN CORPUSCULAR HGB CONC 32.6 G/dL (31.0-37.0); MEAN CORPUSCULAR VOLUME 95 fL (80-100); MONOCYTES # (AUTO) 1.1 K/uL (0.1-1.0); MONOCYTES % (AUTO) 6.9 % (2.0-9.0); NEUTROPHILS # (AUTO) 8.3 K/uL (1.8-7.7); PLATELET COUNT (AUTO) 241 K/uL (150-450); RED BLOOD CELL COUNT(AUTO) 3.72 MIL/uL (4.50-5.90); RED CELL DISTRIBUTION WIDTH 14.8 % (11.5-14.5)
[2021-11-27 08:04] LABS: ALANINE AMINOTRANSFERASE 30 U/L (12-78); ALBUMIN 2.4 g/dL (3.4-5.0); ALKALINE PHOSPHATASE 60 U/L (46-116); ANION GAP 8 mmol/L (8-16); ASPARTATE AMINOTRANSFERASE 19 U/L (15-37); BILIRUBIN,TOTAL 0.3 mg/dL (0.1-1.0); CALCIUM, TOTAL 8.5 mg/dL (8.8-10.5); CARBON DIOXIDE 27 mmol/L (22-29); CHLORIDE 102 mmol/L (98-107); CREATININE 0.93 mg/dL (0.60-1.30); GLUCOSE,RANDOM 91 mg/dL (70-110); SODIUM SERUM 137 mmol/L (136-145); TOTAL PROTEIN, SERUM 5.3 g/dL (6.4-8.2); UREA NITROGEN, BLOOD 37 mg/dL (7-18)
[2021-11-27 08:08] LABS: GLOMERULAR FILTR. RATE CALC > 60 mL/min (>60)
[2021-11-27] MEDS: TICAGRELOR 90 MG TABLET PO SCH ×2 (09:23→20:47)
[2021-11-27] MEDS: DOCUSATE SODIUM 100 MG CAPSULE PO SCH ×2 (09:24→20:47)
[2021-11-27] MEDS: PredniSONE 20 MG TABLET PO SCH (09:24)
[2021-11-27] MEDS: SACUBITRIL/VALSARTAN 24-26 MG TABLET PO SCH ×2 (09:24→20:47)
[2021-11-27] MEDS: ASPIRIN 81 MG DR TABLET PO SCH (09:25)
[2021-11-27] MEDS: BENZONATATE 100 MG CAPSULE PO SCH ×3 (09:25→20:47)
[2021-11-27] MEDS: PANTOPRAZOLE SODIUM 40 MG DR TABLET PO SCH (09:25)
[2021-11-27] MEDS: GuaiFENesin SR 600 MG ER TABLET PO SCH ×2 (09:25→20:47)
[2021-11-27] MEDS: CHOLECALCIFEROL (VIT D3) 2,000 UNITS [50 MCG] TABLET PO SCH (09:26)
[2021-11-27] MEDS: CefTRIAXone 1 GM/DEXTROSE 50 ML IV SCH (09:30)
[2021-11-27] MEDS: CARVEDILOL 3.125 MG TABLET PO SCH ×2 (09:32→20:47)
[2021-11-27] MEDS: BUDESONIDE 0.5 MG/2 ML NEB SOLUTION NEB SCH ×2 (09:40→20:47)
[2021-11-27] MEDS: AZITHROMYCIN 500 MG/NS 250 ML IV SCH (11:05)
[2021-11-27 11:55] VITALS: BP 108/47
[2021-11-27 16:12] VITALS: BP 113/65
[2021-11-27 20:25] VITALS: BP 111/52
[2021-11-28 00:40] VITALS: BP 125/54
[2021-11-28] MEDS: HEPARIN SODIUM,PORCINE 5,000 UNITS/ML VIAL SQ SCH ×3 (01:03→16:45)
[2021-11-28] MEDS: ALBUTEROL SULFATE 2.5 MG/0.5 ML NEB SOLUTION NEB SCH ×3 (01:34→13:35)
[2021-11-28] MEDS: IPRATROPIUM BROMIDE 0.5 MG/2.5 ML NEB SOLUTION NEB SCH ×2 (01:35→13:34)
[2021-11-28 04:55] VITALS: BP 125/72
[2021-11-28] MEDS: BUDESONIDE 0.5 MG/2 ML NEB SOLUTION NEB SCH (07:26)
[2021-11-28] MEDS: CefTRIAXone 1 GM/DEXTROSE 50 ML IV SCH (08:59)
[2021-11-28] MEDS: TICAGRELOR 90 MG TABLET PO SCH (09:00)
[2021-11-28] MEDS: PredniSONE 20 MG TABLET PO SCH (09:00)
[2021-11-28] MEDS: CHOLECALCIFEROL (VIT D3) 2,000 UNITS [50 MCG] TABLET PO SCH (09:00)
[2021-11-28] MEDS: PANTOPRAZOLE SODIUM 40 MG DR TABLET PO SCH (09:00)
[2021-11-28] MEDS: CARVEDILOL 3.125 MG TABLET PO SCH (09:00)
[2021-11-28] MEDS: ASPIRIN 81 MG DR TABLET PO SCH (09:01)
[2021-11-28] MEDS: DOCUSATE SODIUM 100 MG CAPSULE PO SCH (09:01)
[2021-11-28] MEDS: SACUBITRIL/VALSARTAN 24-26 MG TABLET PO SCH (09:01)
[2021-11-28] MEDS: GuaiFENesin SR 600 MG ER TABLET PO SCH (09:01)
[2021-11-28] MEDS: BENZONATATE 100 MG CAPSULE PO SCH ×2 (09:01→16:45)
[2021-11-28] MEDS ORDERED: ATORVASTATIN CALCIUM 20 MG TABLET PO SCH (09:45)
[2021-11-28] MEDS: AZITHROMYCIN 500 MG/NS 250 ML IV SCH (10:06)
[2021-11-28 10:19] VITALS: BP 141/58
[2021-11-28 10:45] LABS: BASOPHILS % (AUTO) 0.3 % (0.0-2.0); EOSINOPHILS % (AUTO) 0.7 % (1.0-6.0); HEMATOCRIT 31.4 % (41-53); HEMOGLOBIN 10.3 g/dL (13.5-17.5); LYMPHOCYTES # (AUTO) 6.8 K/uL (1.0-4.8); LYMPHOCYTES % (AUTO) 48.7 % (22.0-44.0); MEAN CORPUSCULAR HEMOGLOBIN 31.2 pg (26.0-34.0); MEAN CORPUSCULAR HGB CONC 32.6 G/dL (31.0-37.0); MEAN CORPUSCULAR VOLUME 96 fL (80-100); MONOCYTES # (AUTO) 0.9 K/uL (0.1-1.0); MONOCYTES % (AUTO) 6.4 % (2.0-9.0); NEUTROPHILS # (AUTO) 6.2 K/uL (1.8-7.7); NEUTROPHILS % (AUTO) 43.9 % (40.0-70.0); PLATELET COUNT (AUTO) 217 K/uL (150-450); RED BLOOD CELL COUNT(AUTO) 3.29 MIL/uL (4.50-5.90); RED CELL DISTRIBUTION WIDTH 14.9 % (11.5-14.5)
[2021-11-28 11:04] LABS: ALANINE AMINOTRANSFERASE 23 U/L (12-78); ALBUMIN 1.9 g/dL (3.4-5.0); ALKALINE PHOSPHATASE 47 U/L (46-116); ANION GAP 11 mmol/L (8-16); ASPARTATE AMINOTRANSFERASE 15 U/L (15-37); BILIRUBIN,TOTAL 0.3 mg/dL (0.1-1.0); CALCIUM, TOTAL 7.1 mg/dL (8.8-10.5); CARBON DIOXIDE 24 mmol/L (22-29); CHLORIDE 107 mmol/L (98-107); CREATININE 0.69 mg/dL (0.60-1.30); GLUCOSE,RANDOM 133 mg/dL (70-110); POTASSIUM 3.4 mmol/L (3.5-5.1); SODIUM SERUM 142 mmol/L (136-145); TOTAL PROTEIN, SERUM 4.4 g/dL (6.4-8.2); UREA NITROGEN, BLOOD 22 mg/dL (7-18)
[2021-11-28 11:05] LABS: GLOMERULAR FILTR. RATE CALC > 60 mL/min (>60)
[2021-11-28] MEDS ORDERED: POTASSIUM CHLORIDE 20 MEQ ER TABLET PO ONE (12:45)
[2021-11-28] MEDS ORDERED: CefTRIAXone 1 GM/DEXTROSE 50 ML IV ONE (12:45)
[2021-11-28] MEDS ORDERED: SACU1TAB PO (15:57)
[2021-11-28] MEDS ORDERED: TICA90TA PO (15:58)
== END 2021-11-28 17:00 | disposition home or self-care (01) | DRG 246 ==
LOC: EMS 05:00 → 5N 09:47
PROVIDERS: ADMIT Internal Medicine; ATTEND Internal Medicine
PROC: 027034Z Dilation of Coronary Artery, One Artery with Drug-eluting Intraluminal Device, Percutaneous Approach (ICD-10-PCS; principal; 2021-11-26)
PROC: 4A023N7 Measurement of Cardiac Sampling and Pressure, Left Heart, Percutaneous Approach (ICD-10-PCS; 2021-11-26)
PROC: B211YZZ Fluoroscopy of Multiple Coronary Arteries using Other Contrast (ICD-10-PCS; 2021-11-26)
DX: I25.10 Atherosclerotic heart disease of native coronary artery without angina pectoris (principal); I50.43 Acute on chronic combined systolic (congestive) and diastolic (congestive) heart failure; J18.9 Pneumonia, unspecified organism; J44.1 Chronic obstructive pulmonary disease with (acute) exacerbation; J44.0 Chronic obstructive pulmonary disease with (acute) lower respiratory infection; R65.10 Systemic inflammatory response syndrome (SIRS) of non-infectious origin without acute organ dysfunction; E44.0 Moderate protein-calorie malnutrition; I11.0 Hypertensive heart disease with heart failure; I42.9 Cardiomyopathy, unspecified; Z20.822 Contact with and (suspected) exposure to COVID-19; F10.10 Alcohol abuse, uncomplicated; E78.5 Hyperlipidemia, unspecified; M81.0 Age-related osteoporosis without current pathological fracture; I35.1 Nonrheumatic aortic (valve) insufficiency; S51.811A Laceration without foreign body of right forearm, initial encounter; E78.00 Pure hypercholesterolemia, unspecified; X58.XXXA Exposure to other specified factors, initial encounter; Z98.61 Coronary angioplasty status; Z68.20 Body mass index [BMI] 20.0-20.9, adult; Y93.89 Activity, other specified; Y92.89 Other specified places as the place of occurrence of the external cause; Y99.8 Other external cause status; Z72.0 Tobacco use; Z71.6 Tobacco abuse counseling
CPT/HCPCS: 71045; 71275; 80048; 80053; 80061; 81001; 83036; 83880; 84145; 84484; 85025; 92920; 92928; 93005; 93306; 93312; 94640; 99285; J0456; J0696; J1644; J1940; J2250; J2930; J3010; J3490; J7050; Q9967; 36415-L1; 36415-TC; J7613; U0003; Z7610

== ENCOUNTER 2021-12-10 09:36 | Inpatient (IN) | payer MEDICARE, OTHER ==
[~2021-12-10] VITALS: Ht 172.7 cm; Wt 59.7 kg
[~2021-12-10 09:36] MED LIST changes: -AZIT-104 PO; -HYDR25TA2 PO; +PRED-554 PO; -PRED20 PO; +SACU1TAB PO; +TICA90TA PO
[2021-12-10 09:53] LABS: COVID AG,FIA SOURCE NASAL SWAB
[2021-12-10 09:57] LABS: BASOPHILS % (AUTO) 0.6 % (0.0-2.0); EOSINOPHILS % (AUTO) 0.3 % (1.0-6.0); HEMATOCRIT 32.6 % (41-53); HEMOGLOBIN 10.9 g/dL (13.5-17.5); LYMPHOCYTES # (AUTO) 5.8 K/uL (1.0-4.8); LYMPHOCYTES % (AUTO) 38.1 % (22.0-44.0); MEAN CORPUSCULAR HGB CONC 33.4 G/dL (31.0-37.0); MEAN CORPUSCULAR VOLUME 96 fL (80-100); MONOCYTES # (AUTO) 0.4 K/uL (0.1-1.0); MONOCYTES % (AUTO) 2.5 % (2.0-9.0); NEUTROPHILS # (AUTO) 8.9 K/uL (1.8-7.7); NEUTROPHILS % (AUTO) 58.5 % (40.0-70.0); PLATELET COUNT (AUTO) 268 K/uL (150-450); RED BLOOD CELL COUNT(AUTO) 3.41 MIL/uL (4.50-5.90); RED CELL DISTRIBUTION WIDTH 15.2 % (11.5-14.5)
[2021-12-10] MEDS ORDERED: FUROSEMIDE 20 MG/2 ML VIAL IVP ONE (10:00)
[2021-12-10 10:09] LABS: PROTHROMBIN TIME 10.5 SEC (9.4-11.6)
[2021-12-10 10:16] LABS: ANION GAP 12 mmol/L (8-16); CALCIUM, TOTAL 8.8 mg/dL (8.8-10.5); CARBON DIOXIDE 24 mmol/L (22-29); CHLORIDE 105 mmol/L (98-107); CREATININE 1.04 mg/dL (0.60-1.30); GLUCOSE,RANDOM 272 mg/dL (70-110); POTASSIUM 4.8 mmol/L (3.5-5.1); SODIUM SERUM 141 mmol/L (136-145); UREA NITROGEN, BLOOD 22 mg/dL (7-18)
[2021-12-10 10:19] LABS: GLOMERULAR FILTR. RATE CALC > 60 mL/min (>60)
[2021-12-10 10:23] LABS: ALANINE AMINOTRANSFERASE 28 U/L (12-78); ALBUMIN 2.9 g/dL (3.4-5.0); ALKALINE PHOSPHATASE 97 U/L (46-116); ASPARTATE AMINOTRANSFERASE 29 U/L (15-37); BILIRUBIN,TOTAL 0.7 mg/dL (0.1-1.0); CREATINE KINASE, TOTAL ONLY 46 U/L (39-308); TOTAL PROTEIN, SERUM 6.6 g/dL (6.4-8.2)
[2021-12-10] MEDS ORDERED: ALBUTEROL SULFATE 2.5 MG/0.5 ML NEB SOLUTION NEB PRN (10:30)
[2021-12-10] MEDS ORDERED: IPRATROPIUM BROMIDE 0.5 MG/2.5 ML NEB SOLUTION NEB PRN (10:30)
[2021-12-10] MEDS ORDERED: ACETAMINOPHEN 325 MG TABLET PO PRN (10:30)
[2021-12-10] MEDS ORDERED: DEXTROSE 50%-WATER 25 GM/50 ML SYRINGE IVP PRN (10:30)
[2021-12-10] MEDS: CARVEDILOL 3.125 MG TABLET PO SCH ×2 (10:33→20:34)
[2021-12-10] MEDS: PredniSONE 20 MG TABLET PO SCH (10:34)
[2021-12-10 10:38] LABS: B-TYPE NATRIURETIC PEPTIDE 2430 pg/mL (0-100)
[2021-12-10 12:50] VITALS: BP 133/53
[2021-12-10 15:48] VITALS: BP 120/50
[2021-12-10 17:16] LABS: GLUCOMETER DEV NAME(LOC) 5N.3; GLUCOSE,POINT OF CARE 146 MG/DL (70-110)
[2021-12-10 20:00] VITALS: BP 130/60
[2021-12-10] MEDS: DOCUSATE SODIUM 100 MG CAPSULE PO SCH (20:33)
[2021-12-10] MEDS: FAMOTIDINE 20 MG TABLET PO SCH (20:34)
[2021-12-10] MEDS: TICAGRELOR 90 MG TABLET PO SCH (20:34)
[2021-12-10] MEDS: ATORVASTATIN CALCIUM 40 MG TABLET PO SCH (20:34)
[2021-12-10] MEDS: FUROSEMIDE 40 MG/4 ML VIAL IVP SCH (20:35)
[2021-12-10] MEDS: HEPARIN SODIUM,PORCINE 5,000 UNITS/ML VIAL SQ SCH ×2 (20:35→21:00)
[2021-12-10] MEDS: INSULIN LISPRO 100 UNITS/ML SQ PRN (20:45)
[2021-12-10 23:26] LABS: GLUCOMETER DEV NAME(LOC) 5S.2B; GLUCOSE,POINT OF CARE 189 MG/DL (70-110)
[2021-12-10 23:31] LABS: APPEARANCE,URINE CLEAR (CLEAR); BILIRUBIN,URINE NEGATIVE (NEGATIVE); GLUCOSE, URINE (UA) NEGATIVE (NEGATIVE); KETONES,URINE NEGATIVE (NEGATIVE); LEUKOCYTE ESTERASE ,URINE NEGATIVE (NEGATIVE); NITRATE,URINE NEGATIVE (NEGATIVE); OCCULT BLOOD,URINE NEGATIVE (NEGATIVE); PROTEIN,URINE NEGATIVE (NEGATIVE); UROBILINOGEN,URINE 0.2 mg/dL (<=1.0)
[2021-12-11 00:05] VITALS: BP 139/66
[2021-12-11 04:00] VITALS: BP 135/57
[2021-12-11 07:07] LABS: GLUCOMETER DEV NAME(LOC) 5S.2B; GLUCOSE,POINT OF CARE 121 MG/DL (70-110)
[2021-12-11 07:21] VITALS: BP 128/60
[2021-12-11] MEDS: DOCUSATE SODIUM 100 MG CAPSULE PO SCH ×2 (08:32→20:40)
[2021-12-11] MEDS: TICAGRELOR 90 MG TABLET PO SCH ×2 (08:32→20:38)
[2021-12-11] MEDS: ASPIRIN 81 MG CHEWABLE TABLET PO SCH (08:32)
[2021-12-11] MEDS: FUROSEMIDE 40 MG/4 ML VIAL IVP SCH ×2 (08:32→20:38)
[2021-12-11] MEDS: FAMOTIDINE 20 MG TABLET PO SCH ×2 (08:33→20:38)
[2021-12-11] MEDS: PredniSONE 20 MG TABLET PO SCH (08:33)
[2021-12-11] MEDS: CARVEDILOL 3.125 MG TABLET PO SCH ×2 (08:33→20:38)
[2021-12-11] MEDS: HEPARIN SODIUM,PORCINE 5,000 UNITS/ML VIAL SQ SCH ×2 (08:34→20:40)
[2021-12-11] MEDS ORDERED: FUROSEMIDE 20 MG TABLET PO SCH (09:00)
[2021-12-11 11:24] VITALS: BP 117/54
[2021-12-11 16:06] VITALS: BP 119/60
[2021-12-11 17:06] LABS: GLUCOMETER DEV NAME(LOC) 5S.2B; GLUCOSE,POINT OF CARE 158 MG/DL (70-110)
[2021-12-11] MEDS: INSULIN LISPRO 100 UNITS/ML SQ PRN ×2 (17:57→20:42)
[2021-12-11 20:33] VITALS: BP 130/68
[2021-12-11] MEDS: ATORVASTATIN CALCIUM 40 MG TABLET PO SCH (20:39)
[2021-12-12] VITALS (7 sets, daily range): BP systolic 117–144; BP diastolic 44–76
[2021-12-12 05:21] LABS: GLUCOMETER DEV NAME(LOC) 5S.2B; GLUCOSE,POINT OF CARE 149 MG/DL (70-110)
[2021-12-12 06:59] LABS: ALANINE AMINOTRANSFERASE 26 U/L (12-78); ALBUMIN 2.8 g/dL (3.4-5.0); ALKALINE PHOSPHATASE 74 U/L (46-116); ANION GAP 6 mmol/L (8-16); ASPARTATE AMINOTRANSFERASE 18 U/L (15-37); BILIRUBIN,TOTAL 0.5 mg/dL (0.1-1.0); CALCIUM, TOTAL 9.1 mg/dL (8.8-10.5); CARBON DIOXIDE 33 mmol/L (22-29); CHLORIDE 102 mmol/L (98-107); CREATININE 1.07 mg/dL (0.60-1.30); GLUCOSE,RANDOM 96 mg/dL (70-110); POTASSIUM 4.2 mmol/L (3.5-5.1); SODIUM SERUM 141 mmol/L (136-145); TOTAL PROTEIN, SERUM 6.2 g/dL (6.4-8.2); UREA NITROGEN, BLOOD 36 mg/dL (7-18)
[2021-12-12 07:02] LABS: GLOMERULAR FILTR. RATE CALC > 60 mL/min (>60)
[2021-12-12] MEDS: HEPARIN SODIUM,PORCINE 5,000 UNITS/ML VIAL SQ SCH ×2 (09:00→20:22)
[2021-12-12] MEDS: DOCUSATE SODIUM 100 MG CAPSULE PO SCH ×2 (09:06→20:22)
[2021-12-12] MEDS: FAMOTIDINE 20 MG TABLET PO SCH ×2 (09:06→20:22)
[2021-12-12] MEDS: PredniSONE 20 MG TABLET PO SCH (09:06)
[2021-12-12] MEDS: ASPIRIN 81 MG CHEWABLE TABLET PO SCH (09:07)
[2021-12-12] MEDS: FUROSEMIDE 40 MG/4 ML VIAL IVP SCH ×2 (09:07→20:21)
[2021-12-12] MEDS: CARVEDILOL 3.125 MG TABLET PO SCH ×2 (09:07→20:22)
[2021-12-12] MEDS: TICAGRELOR 90 MG TABLET PO SCH ×2 (09:07→20:21)
[2021-12-12 17:21] LABS: GLUCOMETER DEV NAME(LOC) 5S.2B; GLUCOSE,POINT OF CARE 110 MG/DL (70-110)
[2021-12-12 17:21] LABS: GLUCOMETER DEV NAME(LOC) 5S.2B; GLUCOSE,POINT OF CARE 101 MG/DL (70-110)
[2021-12-12 17:21] LABS: GLUCOMETER DEV NAME(LOC) 5S.2B; GLUCOSE,POINT OF CARE 175 MG/DL (70-110)
[2021-12-12] MEDS: INSULIN LISPRO 100 UNITS/ML SQ PRN (20:20)
[2021-12-12] MEDS: ATORVASTATIN CALCIUM 40 MG TABLET PO SCH (20:22)
[2021-12-12 20:51] LABS: GLUCOMETER DEV NAME(LOC) 5S.1B; GLUCOSE,POINT OF CARE 179 MG/DL (70-110)
[2021-12-13 04:12] VITALS: BP 126/47
[2021-12-13 08:00] VITALS: BP 140/52
[2021-12-13] MEDS: TICAGRELOR 90 MG TABLET PO SCH ×2 (08:50→20:16)
[2021-12-13] MEDS: DOCUSATE SODIUM 100 MG CAPSULE PO SCH ×2 (08:50→20:16)
[2021-12-13] MEDS: PredniSONE 20 MG TABLET PO SCH (08:50)
[2021-12-13] MEDS: ASPIRIN 81 MG CHEWABLE TABLET PO SCH (08:50)
[2021-12-13] MEDS: FUROSEMIDE 40 MG/4 ML VIAL IVP SCH ×2 (08:50→20:15)
[2021-12-13] MEDS: CARVEDILOL 3.125 MG TABLET PO SCH ×2 (08:51→20:15)
[2021-12-13] MEDS: FAMOTIDINE 20 MG TABLET PO SCH ×2 (08:51→20:15)
[2021-12-13] MEDS: HEPARIN SODIUM,PORCINE 5,000 UNITS/ML VIAL SQ SCH ×2 (09:00→20:16)
[2021-12-13 09:32] LABS: GLUCOMETER DEV NAME(LOC) 5S.1B; GLUCOSE,POINT OF CARE 95 MG/DL (70-110)
[2021-12-13 12:00] VITALS: BP 121/49
[2021-12-13 16:11] LABS: GLUCOMETER DEV NAME(LOC) 5S.1B; GLUCOSE,POINT OF CARE 121 MG/DL (70-110)
[2021-12-13 16:39] VITALS: BP 132/52
[2021-12-13 19:49] VITALS: BP 130/61
[2021-12-13] MEDS: ATORVASTATIN CALCIUM 40 MG TABLET PO SCH (20:16)
[2021-12-13 20:36] LABS: GLUCOMETER DEV NAME(LOC) 5S.1B; GLUCOSE,POINT OF CARE 126 MG/DL (70-110)
[2021-12-13 23:45] VITALS: BP 123/56
[2021-12-14 03:23] VITALS: BP 135/57
[2021-12-14 05:53] LABS: BASOPHILS % (AUTO) 0.1 % (0.0-2.0); EOSINOPHILS % (AUTO) 0.4 % (1.0-6.0); HEMOGLOBIN 10.5 g/dL (13.5-17.5); LYMPHOCYTES # (AUTO) 5.6 K/uL (1.0-4.8); LYMPHOCYTES % (AUTO) 45.1 % (22.0-44.0); MEAN CORPUSCULAR HEMOGLOBIN 31.2 pg (26.0-34.0); MEAN CORPUSCULAR HGB CONC 32.9 G/dL (31.0-37.0); MEAN CORPUSCULAR VOLUME 95 fL (80-100); MONOCYTES # (AUTO) 0.8 K/uL (0.1-1.0); MONOCYTES % (AUTO) 6.1 % (2.0-9.0); NEUTROPHILS % (AUTO) 48.3 % (40.0-70.0); PLATELET COUNT (AUTO) 256 K/uL (150-450); RED BLOOD CELL COUNT(AUTO) 3.38 MIL/uL (4.50-5.90); RED CELL DISTRIBUTION WIDTH 15.4 % (11.5-14.5)
[2021-12-14 06:05] LABS: ANION GAP 3 mmol/L (8-16); CALCIUM, TOTAL 9.1 mg/dL (8.8-10.5); CARBON DIOXIDE 32 mmol/L (22-29); CHLORIDE 99 mmol/L (98-107); CREATININE 0.98 mg/dL (0.60-1.30); GLUCOSE,RANDOM 97 mg/dL (70-110); POTASSIUM 3.3 mmol/L (3.5-5.1); SODIUM SERUM 134 mmol/L (136-145); UREA NITROGEN, BLOOD 43 mg/dL (7-18)
[2021-12-14 06:07] LABS: GLOMERULAR FILTR. RATE CALC > 60 mL/min (>60)
[2021-12-14 08:00] VITALS: BP 120/60
[2021-12-14] MEDS: ASPIRIN 81 MG CHEWABLE TABLET PO SCH (08:37)
[2021-12-14] MEDS: DOCUSATE SODIUM 100 MG CAPSULE PO SCH (08:37)
[2021-12-14] MEDS: FAMOTIDINE 20 MG TABLET PO SCH (08:37)
[2021-12-14] MEDS: TICAGRELOR 90 MG TABLET PO SCH (08:37)
[2021-12-14] MEDS: PredniSONE 20 MG TABLET PO SCH (08:38)
[2021-12-14] MEDS: FUROSEMIDE 40 MG/4 ML VIAL IVP SCH (08:38)
[2021-12-14] MEDS: HEPARIN SODIUM,PORCINE 5,000 UNITS/ML VIAL SQ SCH (09:00)
[2021-12-14] MEDS: CARVEDILOL 3.125 MG TABLET PO SCH (09:00)
[2021-12-14] MEDS ORDERED: POTASSIUM CHLORIDE 10 MEQ ER TABLET PO ONE (10:00)
[2021-12-14] MEDS ORDERED: POTA8CAP20 PO (10:01)
[2021-12-14] MEDS ORDERED: FURO40 PO (10:01)
[2021-12-14 12:36] LABS: GLUCOMETER DEV NAME(LOC) 5S.1B; GLUCOSE,POINT OF CARE 118 MG/DL (70-110)
[2021-12-14 12:56] VITALS: BP 113/51
[2021-12-14 17:02] LABS: GLUCOMETER DEV NAME(LOC) 5N.3; GLUCOSE,POINT OF CARE 103 MG/DL (70-110)
== END 2021-12-14 15:00 | disposition home or self-care (01) | DRG 291 ==
LOC: EMS 09:42 → 5S 11:29
PROVIDERS: ADMIT Internal Medicine; ATTEND Internal Medicine
PROC: 5A09357 Assistance with Respiratory Ventilation, Less than 24 Consecutive Hours, Continuous Positive Airway Pressure (ICD-10-PCS; principal; 2021-12-10)
DX: I11.0 Hypertensive heart disease with heart failure (principal); J96.01 Acute respiratory failure with hypoxia; I50.41 Acute combined systolic (congestive) and diastolic (congestive) heart failure; J44.1 Chronic obstructive pulmonary disease with (acute) exacerbation; E78.00 Pure hypercholesterolemia, unspecified; Z20.822 Contact with and (suspected) exposure to COVID-19; I35.0 Nonrheumatic aortic (valve) stenosis; D04.9 Carcinoma in situ of skin, unspecified; R26.2 Difficulty in walking, not elsewhere classified; Z82.49 Family history of ischemic heart disease and other diseases of the circulatory system; Z83.3 Family history of diabetes mellitus; Z87.891 Personal history of nicotine dependence; Z87.01 Personal history of pneumonia (recurrent); Z79.82 Long term (current) use of aspirin; Z95.5 Presence of coronary angioplasty implant and graft
CPT/HCPCS: 71045; 80048; 80053; 81003; 82550; 82962; 83880; 84484; 85025; 85610; 85730; 93005; 94660; 97162; 99291; J1644; J1940; 36415-L1; 36415-TC

== ENCOUNTER 2021-12-27 00:13 | Inpatient (IN) | payer MEDICARE, OTHER ==
[~2021-12-27] VITALS: Ht 172.7 cm; Wt 62.1 kg
[~2021-12-27 00:13] MED LIST changes: +FURO40 PO; +POTA8CAP20 PO; -PRED-554 PO; -SACU1TAB PO; -ZINC220C14 PO
[2021-12-27] MEDS ORDERED: HYDR25TA2 PO (01:15)
[2021-12-27] MEDS ORDERED: PRED-554 PO (01:15)
[2021-12-27] MEDS ORDERED: CARV3.1231 PO (01:15)
[2021-12-27 01:41] LABS: COVID AG,FIA SOURCE NASOPHARYNGEAL
[2021-12-27] MEDS ORDERED: ALBUTEROL SULFATE HFA 90 MCG/PUFF 8 GM INHALER IH ONE (01:45)
[2021-12-27 01:51] LABS: BASOPHILS % (AUTO) 0.5 % (0.0-2.0); EOSINOPHILS % (AUTO) 0.2 % (1.0-6.0); HEMATOCRIT 33.6 % (41-53); HEMOGLOBIN 10.8 g/dL (13.5-17.5); LYMPHOCYTES # (AUTO) 8.1 K/uL (1.0-4.8); LYMPHOCYTES % (AUTO) 41.1 % (22.0-44.0); MEAN CORPUSCULAR HEMOGLOBIN 29.8 pg (26.0-34.0); MEAN CORPUSCULAR VOLUME 93 fL (80-100); MONOCYTES # (AUTO) 0.9 K/uL (0.1-1.0); MONOCYTES % (AUTO) 4.6 % (2.0-9.0); NEUTROPHILS # (AUTO) 10.6 K/uL (1.8-7.7); NEUTROPHILS % (AUTO) 53.6 % (40.0-70.0); PLATELET COUNT (AUTO) 324 K/uL (150-450)
[2021-12-27 03:12] LABS: B-TYPE NATRIURETIC PEPTIDE 2240 pg/mL (0-100)
[2021-12-27 03:19] LABS: ANION GAP 10 mmol/L (8-16); CALCIUM, TOTAL 9.1 mg/dL (8.8-10.5); CARBON DIOXIDE 26 mmol/L (22-29); CHLORIDE 106 mmol/L (98-107); CREATININE 0.85 mg/dL (0.60-1.30); GLUCOSE,RANDOM 125 mg/dL (70-110); POTASSIUM 4.4 mmol/L (3.5-5.1); SODIUM SERUM 142 mmol/L (136-145); UREA NITROGEN, BLOOD 24 mg/dL (7-18)
[2021-12-27 03:25] LABS: ALANINE AMINOTRANSFERASE 34 U/L (12-78); ALKALINE PHOSPHATASE 84 U/L (46-116); ASPARTATE AMINOTRANSFERASE 32 U/L (15-37); BILIRUBIN,TOTAL 0.7 mg/dL (0.1-1.0); CREATINE KINASE, TOTAL ONLY 50 U/L (39-308); TOTAL PROTEIN, SERUM 6.7 g/dL (6.4-8.2)
[2021-12-27 03:28] LABS: GLOMERULAR FILTR. RATE CALC > 60 mL/min (>60)
[2021-12-27] MEDS ORDERED: AZITHROMYCIN 500 MG/NS 250 ML IV ONE (03:45)
[2021-12-27] MEDS ORDERED: NITROGLYCERIN 2% (1 GM=INCH) PACKET TP ONE (03:45)
[2021-12-27] MEDS ORDERED: CefTRIAXone 1 GM/DEXTROSE 50 ML IV ONE (03:45)
[2021-12-27] MEDS ORDERED: FUROSEMIDE 40 MG/4 ML VIAL IVP ONE (03:45)
[2021-12-27] MEDS ORDERED: ACETAMINOPHEN 325 MG TABLET PO PRN (04:15)
[2021-12-27] MEDS ORDERED: IPRATROPIUM BROMIDE 0.5 MG/2.5 ML NEB SOLUTION NEB PRN (04:15)
[2021-12-27] MEDS ORDERED: ONDANSETRON HCL 4 MG/2 ML VIAL IVP PRN (04:15)
[2021-12-27] MEDS ORDERED: ALBUTEROL SULFATE 2.5 MG/0.5 ML NEB SOLUTION NEB PRN (04:15)
[2021-12-27 05:13] LABS: APPEARANCE,URINE CLEAR (CLEAR); BILIRUBIN,URINE NEGATIVE (NEGATIVE); GLUCOSE, URINE (UA) NEGATIVE (NEGATIVE); KETONES,URINE NEGATIVE (NEGATIVE); LEUKOCYTE ESTERASE ,URINE NEGATIVE (NEGATIVE); NITRATE,URINE NEGATIVE (NEGATIVE); OCCULT BLOOD,URINE NEGATIVE (NEGATIVE); PH,URINE 6.5 (5.0-8.0); PROTEIN,URINE NEGATIVE (NEGATIVE); SPECIFIC GRAVITIY, URINE 1.005 (1.003-1.030); UROBILINOGEN,URINE <=1.0 mg/dL (<=1.0)
[2021-12-27 06:30] VITALS: BP 126/91
[2021-12-27] MEDS ORDERED: HYDROCHLOROTHIAZIDE 25 MG TABLET PO SCH (09:00)
[2021-12-27] MEDS ORDERED: FUROSEMIDE 20 MG/2 ML VIAL IVP SCH (09:00)
[2021-12-27] MEDS ORDERED: MethylPREDNISolone SOD SUCC 125 MG/2 ML VIAL IVP SCH (09:00)
[2021-12-27 09:13] VITALS: BP 133/62
[2021-12-27] MEDS: HEPARIN SODIUM,PORCINE 5,000 UNITS/ML VIAL SQ SCH ×2 (09:55→16:39)
[2021-12-27] MEDS: TICAGRELOR 90 MG TABLET PO SCH ×2 (09:55→21:05)
[2021-12-27] MEDS: FUROSEMIDE 20 MG/2 ML VIAL IVP SCH ×2 (09:55→16:39)
[2021-12-27] MEDS: CARVEDILOL 3.125 MG TABLET PO SCH ×2 (09:55→21:05)
[2021-12-27] MEDS: CHOLECALCIFEROL (VIT D3) 2,000 UNITS [50 MCG] TABLET PO SCH (09:56)
[2021-12-27] MEDS: ASPIRIN 81 MG DR TABLET PO SCH (09:56)
[2021-12-27 13:01] VITALS: BP 132/60
[2021-12-27] MEDS: PANTOPRAZOLE SODIUM 40 MG DR TABLET PO SCH (16:39)
[2021-12-27] MEDS: MethylPREDNISolone SOD SUCC 40 MG/ML VIAL IVP SCH (16:39)
[2021-12-27] MEDS: DOXYCYCLINE HYCLATE 100 MG in DEXTROSE 5%-WATER 100 ML IV SCH (16:40)
[2021-12-27 17:22] VITALS: BP 133/55
[2021-12-27] MEDS: ATORVASTATIN CALCIUM 40 MG TABLET PO SCH (21:05)
[2021-12-27 23:23] VITALS: BP 128/70
[2021-12-28] MEDS: MethylPREDNISolone SOD SUCC 40 MG/ML VIAL IVP SCH ×4 (00:51→23:58)
[2021-12-28] MEDS: FUROSEMIDE 20 MG/2 ML VIAL IVP SCH ×4 (00:51→23:58)
[2021-12-28] MEDS: HEPARIN SODIUM,PORCINE 5,000 UNITS/ML VIAL SQ SCH ×4 (00:51→23:58)
[2021-12-28 01:54] VITALS: BP 116/73
[2021-12-28] MEDS: DOXYCYCLINE HYCLATE 100 MG in DEXTROSE 5%-WATER 100 ML IV SCH ×2 (03:19→16:20)
[2021-12-28] MEDS ORDERED: SODIUM CHLORIDE 0.9% 250 ML IV ONE (03:27)
[2021-12-28] MEDS: CefTRIAXone 1 GM/DEXTROSE 50 ML IV SCH (05:29)
[2021-12-28 06:02] VITALS: BP 135/61
[2021-12-28 06:57] LABS: BASOPHILS % (AUTO) 0.1 % (0.0-2.0); EOSINOPHILS % (AUTO) 0 % (1.0-6.0); HEMATOCRIT 32.3 % (41-53); HEMOGLOBIN 10.6 g/dL (13.5-17.5); LYMPHOCYTES % (AUTO) 33.3 % (22.0-44.0); MEAN CORPUSCULAR HEMOGLOBIN 30.2 pg (26.0-34.0); MEAN CORPUSCULAR HGB CONC 32.8 G/dL (31.0-37.0); MEAN CORPUSCULAR VOLUME 92 fL (80-100); MONOCYTES # (AUTO) 0.4 K/uL (0.1-1.0); MONOCYTES % (AUTO) 1.9 % (2.0-9.0); NEUTROPHILS # (AUTO) 11.7 K/uL (1.8-7.7); NEUTROPHILS % (AUTO) 64.7 % (40.0-70.0); PLATELET COUNT (AUTO) 303 K/uL (150-450); RED CELL DISTRIBUTION WIDTH 15.4 % (11.5-14.5)
[2021-12-28 07:17] LABS: ALANINE AMINOTRANSFERASE 24 U/L (12-78); ALBUMIN 2.8 g/dL (3.4-5.0); ALKALINE PHOSPHATASE 72 U/L (46-116); ANION GAP 9 mmol/L (8-16); ASPARTATE AMINOTRANSFERASE 20 U/L (15-37); BILIRUBIN,TOTAL 0.7 mg/dL (0.1-1.0); CALCIUM, TOTAL 8.9 mg/dL (8.8-10.5); CARBON DIOXIDE 28 mmol/L (22-29); CHLORIDE 97 mmol/L (98-107); CREATININE 1.13 mg/dL (0.60-1.30); GLUCOSE,RANDOM 161 mg/dL (70-110); POTASSIUM 3.3 mmol/L (3.5-5.1); SODIUM SERUM 134 mmol/L (136-145); TOTAL PROTEIN, SERUM 6.4 g/dL (6.4-8.2); UREA NITROGEN, BLOOD 29 mg/dL (7-18)
[2021-12-28 07:20] LABS: GLOMERULAR FILTR. RATE CALC > 60 mL/min (>60)
[2021-12-28] MEDS: TICAGRELOR 90 MG TABLET PO SCH ×2 (09:07→20:26)
[2021-12-28] MEDS: CARVEDILOL 3.125 MG TABLET PO SCH ×2 (09:07→20:26)
[2021-12-28] MEDS: ASPIRIN 81 MG DR TABLET PO SCH (09:07)
[2021-12-28] MEDS: CHOLECALCIFEROL (VIT D3) 2,000 UNITS [50 MCG] TABLET PO SCH (09:08)
[2021-12-28] MEDS: PANTOPRAZOLE SODIUM 40 MG DR TABLET PO SCH (09:08)
[2021-12-28 09:33] VITALS: BP 124/58
[2021-12-28 12:34] VITALS: BP 133/65
[2021-12-28 15:33] LABS: PHOSPHORUS 4.5 mg/dL (2.5-4.9)
[2021-12-28 15:49] VITALS: BP 126/62
[2021-12-28 20:00] VITALS: BP 124/87
[2021-12-28] MEDS: ATORVASTATIN CALCIUM 40 MG TABLET PO SCH (20:26)
[2021-12-28] MEDS ORDERED: POTASSIUM CHLORIDE 20 MEQ ER TABLET PO ONE (23:30)
[2021-12-29] VITALS: BP 124/55
[2021-12-29] MEDS: DOXYCYCLINE HYCLATE 100 MG in DEXTROSE 5%-WATER 100 ML IV SCH ×2 (05:44→15:50)
[2021-12-29] MEDS: CefTRIAXone 1 GM/DEXTROSE 50 ML IV SCH (05:45)
[2021-12-29 06:12] VITALS: BP 133/56
[2021-12-29 07:55] LABS: BASOPHILS % (AUTO) 0.1 % (0.0-2.0); EOSINOPHILS % (AUTO) 0 % (1.0-6.0); HEMATOCRIT 32.2 % (41-53); HEMOGLOBIN 10.6 g/dL (13.5-17.5); LYMPHOCYTES # (AUTO) 6.3 K/uL (1.0-4.8); LYMPHOCYTES % (AUTO) 27.9 % (22.0-44.0); MEAN CORPUSCULAR HEMOGLOBIN 30.3 pg (26.0-34.0); MEAN CORPUSCULAR HGB CONC 32.9 G/dL (31.0-37.0); MEAN CORPUSCULAR VOLUME 92 fL (80-100); MONOCYTES # (AUTO) 0.6 K/uL (0.1-1.0); MONOCYTES % (AUTO) 2.6 % (2.0-9.0); NEUTROPHILS # (AUTO) 15.8 K/uL (1.8-7.7); NEUTROPHILS % (AUTO) 69.4 % (40.0-70.0); PLATELET COUNT (AUTO) 285 K/uL (150-450); RED BLOOD CELL COUNT(AUTO) 3.49 MIL/uL (4.50-5.90); RED CELL DISTRIBUTION WIDTH 15.4 % (11.5-14.5)
[2021-12-29 08:12] LABS: ALANINE AMINOTRANSFERASE 21 U/L (12-78); ALBUMIN 2.8 g/dL (3.4-5.0); ALKALINE PHOSPHATASE 64 U/L (46-116); ANION GAP 7 mmol/L (8-16); ASPARTATE AMINOTRANSFERASE 13 U/L (15-37); BILIRUBIN,TOTAL 0.4 mg/dL (0.1-1.0); CALCIUM, TOTAL 8.8 mg/dL (8.8-10.5); CARBON DIOXIDE 31 mmol/L (22-29); CHLORIDE 98 mmol/L (98-107); CREATININE 1.14 mg/dL (0.60-1.30); GLOMERULAR FILTR. RATE CALC > 60 mL/min (>60); GLUCOSE,RANDOM 139 mg/dL (70-110); SODIUM SERUM 136 mmol/L (136-145); TOTAL PROTEIN, SERUM 6.2 g/dL (6.4-8.2); UREA NITROGEN, BLOOD 37 mg/dL (7-18)
[2021-12-29 08:18] VITALS: BP 119/46
[2021-12-29] MEDS: HEPARIN SODIUM,PORCINE 5,000 UNITS/ML VIAL SQ SCH ×3 (08:37→22:48)
[2021-12-29] MEDS: PANTOPRAZOLE SODIUM 40 MG DR TABLET PO SCH (08:38)
[2021-12-29] MEDS: CHOLECALCIFEROL (VIT D3) 2,000 UNITS [50 MCG] TABLET PO SCH (08:38)
[2021-12-29] MEDS: FUROSEMIDE 20 MG/2 ML VIAL IVP SCH (08:38)
[2021-12-29] MEDS: ASPIRIN 81 MG DR TABLET PO SCH (08:39)
[2021-12-29] MEDS: TICAGRELOR 90 MG TABLET PO SCH ×2 (08:39→21:24)
[2021-12-29] MEDS: MethylPREDNISolone SOD SUCC 40 MG/ML VIAL IVP SCH ×2 (08:39→21:23)
[2021-12-29] MEDS: CARVEDILOL 3.125 MG TABLET PO SCH ×2 (08:39→21:23)
[2021-12-29 11:44] VITALS: BP 118/47
[2021-12-29 15:48] VITALS: BP 107/68
[2021-12-29 20:05] VITALS: BP 117/59
[2021-12-29] MEDS: ATORVASTATIN CALCIUM 40 MG TABLET PO SCH (21:23)
[2021-12-30 00:10] VITALS: BP 111/59
[2021-12-30] MEDS: DOXYCYCLINE HYCLATE 100 MG in DEXTROSE 5%-WATER 100 ML IV SCH ×2 (04:08→15:27)
[2021-12-30] MEDS: CefTRIAXone 1 GM/DEXTROSE 50 ML IV SCH (04:09)
[2021-12-30 06:07] VITALS: BP 133/59
[2021-12-30 06:27] LABS: BASOPHILS % (AUTO) 0.1 % (0.0-2.0); EOSINOPHILS % (AUTO) 0 % (1.0-6.0); HEMATOCRIT 33.6 % (41-53); HEMOGLOBIN 10.8 g/dL (13.5-17.5); LYMPHOCYTES # (AUTO) 6.8 K/uL (1.0-4.8); LYMPHOCYTES % (AUTO) 29.7 % (22.0-44.0); MEAN CORPUSCULAR HEMOGLOBIN 29.7 pg (26.0-34.0); MEAN CORPUSCULAR VOLUME 93 fL (80-100); MONOCYTES # (AUTO) 0.6 K/uL (0.1-1.0); MONOCYTES % (AUTO) 2.8 % (2.0-9.0); NEUTROPHILS # (AUTO) 15.4 K/uL (1.8-7.7); NEUTROPHILS % (AUTO) 67.4 % (40.0-70.0); PLATELET COUNT (AUTO) 277 K/uL (150-450); RED BLOOD CELL COUNT(AUTO) 3.63 MIL/uL (4.50-5.90); RED CELL DISTRIBUTION WIDTH 15.3 % (11.5-14.5)
[2021-12-30] MEDS ORDERED: ALENDRONATE SODIUM 70 MG TABLET PO SCH (06:30)
[2021-12-30 06:40] LABS: ALANINE AMINOTRANSFERASE 17 U/L (12-78); ALBUMIN 2.7 g/dL (3.4-5.0); ALKALINE PHOSPHATASE 56 U/L (46-116); ANION GAP 7 mmol/L (8-16); ASPARTATE AMINOTRANSFERASE 11 U/L (15-37); BILIRUBIN,TOTAL 0.3 mg/dL (0.1-1.0); CALCIUM, TOTAL 8.5 mg/dL (8.8-10.5); CARBON DIOXIDE 29 mmol/L (22-29); CHLORIDE 99 mmol/L (98-107); CREATININE 0.95 mg/dL (0.60-1.30); GLUCOSE,RANDOM 122 mg/dL (70-110); POTASSIUM 3.6 mmol/L (3.5-5.1); SODIUM SERUM 135 mmol/L (136-145); UREA NITROGEN, BLOOD 38 mg/dL (7-18)
[2021-12-30 07:08] LABS: GLOMERULAR FILTR. RATE CALC > 60 mL/min (>60)
[2021-12-30 07:39] VITALS: BP 125/66
[2021-12-30] MEDS: HEPARIN SODIUM,PORCINE 5,000 UNITS/ML VIAL SQ SCH ×2 (08:21→15:28)
[2021-12-30] MEDS: ASPIRIN 81 MG DR TABLET PO SCH (08:21)
[2021-12-30] MEDS: CHOLECALCIFEROL (VIT D3) 2,000 UNITS [50 MCG] TABLET PO SCH (08:21)
[2021-12-30] MEDS: MethylPREDNISolone SOD SUCC 40 MG/ML VIAL IVP SCH (08:22)
[2021-12-30] MEDS: TICAGRELOR 90 MG TABLET PO SCH (08:22)
[2021-12-30] MEDS: CARVEDILOL 3.125 MG TABLET PO SCH (08:22)
[2021-12-30] MEDS: PANTOPRAZOLE SODIUM 40 MG DR TABLET PO SCH (08:22)
[2021-12-30] MEDS ORDERED: FUROSEMIDE 40 MG TABLET PO SCH (09:00)
[2021-12-30 11:14] VITALS: BP 146/78
[2021-12-30 11:31] VITALS: BP 126/52
[2021-12-30 16:36] VITALS: BP 124/41
[2021-12-30] MEDS ORDERED: FURO-151 PO (16:50)
== END 2021-12-30 17:10 | disposition home health service (06) | DRG 291 ==
LOC: EMS 00:17 → 5N 04:32
PROVIDERS: ADMIT Internal Medicine; ATTEND Internal Medicine
DX: I11.0 Hypertensive heart disease with heart failure (principal); I50.43 Acute on chronic combined systolic (congestive) and diastolic (congestive) heart failure; J44.1 Chronic obstructive pulmonary disease with (acute) exacerbation; R65.10 Systemic inflammatory response syndrome (SIRS) of non-infectious origin without acute organ dysfunction; E44.0 Moderate protein-calorie malnutrition; Z20.822 Contact with and (suspected) exposure to COVID-19; D64.9 Anemia, unspecified; I25.10 Atherosclerotic heart disease of native coronary artery without angina pectoris; E78.5 Hyperlipidemia, unspecified; E78.00 Pure hypercholesterolemia, unspecified; Z87.01 Personal history of pneumonia (recurrent); Z83.3 Family history of diabetes mellitus; Z87.891 Personal history of nicotine dependence; Z98.61 Coronary angioplasty status; Z68.20 Body mass index [BMI] 20.0-20.9, adult; Z71.6 Tobacco abuse counseling
CPT/HCPCS: 71045; 80053; 81003; 82550; 83735; 83880; 84100; 84145; 84484; 85025; 85379; 87040; 93005; 93308; 97162; 99291; J0456; J0696; J1644; J1940; J2920; J2930; J3490; J3535; J7050; J7060; 36415-L1; 36415-TC